=== PATIENT | female | born 1950 | race Caucasian/White ===

== ENCOUNTER 2022-01-27 18:39 | Emergency (ER) | payer MEDICARE, SELFPAY ==
[2022-01-27 19:03] VITALS: BP 142/104; PULSE 92; RESP 18; TEMP 36.8; O2SAT 97; BMI 36.6
--- NOTE | 2022-01-27 19:46 | CRLHL7_ITS ---
For Patients: As a result of the Century Cures Act, medical imaging exams and procedure reports are released immediately into your electronic medical record. You may view this report before your referring provider. If you have questions, please contact your health care provider. INDICATION: Cough, new COVID-19 diagnosis TECHNIQUE: Chest radiograph 1 view COMPARISON: None FINDINGS: The sensitivity and specificity of the exam are severely limited by the patient`s body habitus. Mediastinum: Mild to moderate sliding type gastric hiatal hernia (type IV) is present. The heart silhouette is normal in size and morphology. Lung: Mild left basilar discoid atelectasis is seen. No sign of pleural effusion seen. No pneumothorax is identified. Bone and Soft tissue: Unremarkable for age. IMPRESSION: 1. Mild left basilar discoid atelectasis is seen. Dictated by Daniel Rivas MD @ 01/27/2022 8:11:40 PM Dictated by: Daniel Rivas MD @ 01/27/2022 20:11:46 (Electronically Signed)
[2022-01-27 20:29] LABS: Creatinine, Point-of-Care* 0.5 mg/dl (0.6-1.3)
--- NOTE | 2022-01-27 21:00 | ED.FEVER ---
HPI - Fever General Chief Complaint: Cough Stated Complaint: Covid+ Time Seen by Provider: 01/27/22 18:59 Source: patient and RN notes reviewed History of Present Illness HPI Narrative: 71-year-old woman presenting to the emergency department with concern of COVID. Was last week on a cruise and sat next to a couple of people who ultimately were quarantine apparently with positive COVID. Two days ago then her symptoms began. Feeling congested which she attributed to somewhat to environmental allergies. She has begun feeling achy has ?killer headache? chilled. She has measured a temperature up to 100.1 I believe. Throat tickle seems to be inspiring cough. She is worried that her ears might be infected as they seem quite full. She acknowledges chronic tinnitus. She did test positive herself at home for COVID. She has received COVID vaccines boosted. Notes a history of pneumonia and bronchitis. She does have some concern of this. Treatment so far with Tylenol. She also has not utero inhaler obtained from an master fisher in [place] who thinks she has borderline asthma. In addition to medications as noted prior has fluticasone nasal spray. No abdominal pain specifically. No diarrhea. Maybe looser stools. Related Data Home Medications Medication Instructions Recorded Confirmed albuterol sulfate 90 mcg/actuation INHALATION 01/27/22 aerosol inhaler (Ventolin HFA) duloxetine 60 mg capsule,delayed mg PO 01/27/22 release epinephrine 0.3 mg/0.3 mL 01/27/22 injection, auto-injector esomeprazole magnesium 40 mg mg 01/27/22 capsule,delayed release lidocaine 5 % topical patch patch 01/27/22 Previous Rx's Medication Instructions Recorded nirmatrelvir 300 mg (150 mg x See Rx Instructions PO .COMPLEX #6 01/27/22 2)-ritonavir 100 mg tablet (EUA) tab (Paxlovid 300 mg () Allergies Allergy/AdvReac Type Severity Reaction Status Date / Time erythromycin base Allergy Intermediate vences-any Verified 01/27/22 19:03 hnson gabapentin Allergy Intermediate Hives Verified 01/27/22 19:03 Review of Systems Status of ROS Reports: 6 or more systems reviewed and unremarkable except as noted in History and below PFSH PFSH Social History Smoking Status: Unknown if ever smoked How often do you have a drink containing alcohol: never How often do you have six or more drinks on one occasion: Never AUDIT-C Alcohol total score: 0 Non-prescribed substance use: denies use Exam Narrative Exam Narrative: Pleasant. NAD. Sounds congested. No facial swelling erythema or tenderness. TMs bilaterally are clear though the left is a little pink. Ear canals are rather small. Oropharynx is moist not erythematous. Lungs are clear Cardiovascular little elevated rate no MR G Abdomen is soft and nontender normoactive bowel sounds. Skin is warm and dry without rash. Moving all extremities without difficulty. No edema. Const Vital Signs, click to edit/add: Vital Signs - 24 hr 01/27/22 19:03 Temperature 98.2 F Pulse Rate [Pulse Oximeter] 92 Respiratory Rate 18 Blood Pressure [Right Upper Arm] 142/104 H Pulse Oximetry 97 Documenting provider has reviewed patient's vital signs: yes Course Course Hospital Course: Exam and interview as above. Chest x-ray reviewed by me looks relatively unremarkable other than a little haziness in the left lower lung field. Radiology reads this as some discoid atelectasis. monitored. stable oxygenation given requested acetaminophen. verified creatinine and covid pos Vital Signs Vital signs: Initial Vital Signs Temperature 98.2 F 01/27/22 19:03 Temperature Source Temporal Artery Scan 01/27/22 19:03 Pulse Rate 92 01/27/22 19:03 Respiratory Rate 18 01/27/22 19:03 Blood Pressure 142/104 H 01/27/22 19:03 Blood Pressure Mean 116 01/27/22 19:03 Blood Pressure Position Sitting 01/27/22 19:03 Pulse Oximetry 97 01/27/22 19:03 Oxygen Delivery Method 01/27/22 19:03 Vital Signs Temperature 98.2 F 01/27/22 19:03 Pulse Rate 92 01/27/22 19:03 Respiratory Rate 18 01/27/22 19:03 Blood Pressure 142/104 H 01/27/22 19:03 Pulse Oximetry 97 01/27/22 19:03 Temperature 98.2 F 01/27/22 21:38 Pulse Rate 92 01/27/22 19:03 Respiratory Rate 18 01/27/22 21:38 Blood Pressure 142/104 H 01/27/22 19:03 Pulse Oximetry 97 01/27/22 19:03 MDM - Fever MDM Narrative Medical decision making narrative: Anticipating COVID positive rechecking this for medical documentation with PCR testing. X-rays noted above. Point of care creatinine is 0.5. I have reviewed her medications for safety with Paxlovid Medical Records Attestation: I reviewed the patient's medical records. Lab Data Attestation: I reviewed the patient's lab results. Labs: Lab Results 01/27/22 01/27/22 Range/Units 19:46 20:21 SARS-CoV-2 (PCR) POSITIVE (Negative) POC Creatinine 0.5 L (0.6-1.3) mg/dl Discharge Plan Discharge Clinical Impression: COVID-19, Dysfunction of eustachian tube, Head congestion Patient Disposition: Home, Self-Care Condition: Stable Additional Instructions: Focus on hydration. Might sleep under the mist of a cool mist humidifier. Neti pot with nasal saline rinses might be helpful Pseudoephedrine for drying and decongestion might also help with your throat tickle related cough -- and help drain your ears. If becoming more short of air, get yourself home oxygen monitor and return to the emergency department for oxygen saturations of 90% or less. Prescriptions: New Paxlovid (EUA) 150 mg x 2- 100 mg tablet See Rx Instructions PO .COMPLEX Qty: 6 0RF Rx Instructions: take TWO 150 mg tablets of nirmatrelvir with ONE 100 mg tablet of ritonavir twice daily for 5 days No Action esomeprazole magnesium 40 mg capsule,delayed release(DR/EC) 0RF lidocaine 5 % adhesive patch,medicated 0RF Label Comments: APPLY 1 PATCH TOPICALLY TO THE SKIN EVERY DAY epinephrine 0.3 mg/0.3 mL auto-injector 0RF Label Comments: ADMINISTER 0.3 ML IN THE MUSCLE 1 TIME NEEDED FOR ANAPHYLAXIS albuterol sulfate [Ventolin HFA] 90 mcg/actuation HFA aerosol inhaler INHALATION 0RF Label Comments: INHALE 2 PUFFS BY MOUTH EVERY 4 TO 6 HOURS NEEDED FOR SYMPTOMS OR SHORTNESS OF BREATH OR COUGH OR WHEEZING OR CHEST TIGHTNESS . . duloxetine 60 mg capsule,delayed release(DR/EC) PO 0RF Label Comments: TAKE 1 CAPSULE BY MOUTH EVERY DAY AT NIGHT Follow Up/Referrals: Provider,Not a Local [Primary Care Provider] - Stand Alone Forms: [employer] Info Instructions
[2022-01-27 21:14] LABS: SARS PCR* POSITIVE (Negative)
[2022-01-27 21:38] VITALS: RESP 18; TEMP 36.8
== END 2022-01-27 21:38 | disposition home or self-care (01) ==
PROVIDERS: Emergency Provider Family Medicine
DX: U07.1 COVID-19 (principal)
CPT/HCPCS: 71045; 82565; 87635; 99283; 99284